=== PATIENT | male | born 1960 | race Caucasian/White ===

== ENCOUNTER 2021-07-08 10:57 | Emergency (ER) | payer OTHER, BC ==
[2021-07-08] MEDS ORDERED: Diphtheria,Pertussis(Acell),Tetanus Vaccine 0.5 ML Syringe IM ONE (11:57)
== END 2021-07-08 14:11 | disposition home or self-care (01) ==
LOC: MW.ED 10:57
DX: S00.93XA Contusion of unspecified part of head, initial encounter (principal); S69.91XA Unspecified injury of right wrist, hand and finger(s), initial encounter; S69.92XA Unspecified injury of left wrist, hand and finger(s), initial encounter; I10 Essential (primary) hypertension; E11.9 Type 2 diabetes mellitus without complications; Z23 Encounter for immunization; W19.XXXA Unspecified fall, initial encounter; Y92.009 Unspecified place in unspecified non-institutional (private) residence as the place of occurrence of the external cause
CPT/HCPCS: 70450; 70450-26; 73130-26-LT; 73130-26-RT; 73130-LT; 73130-RT; 90471; 90715; 99284; 99284-25

== ENCOUNTER 2024-01-29 09:19 | Day surgery (SDC) | payer BC ==
[2024-01-29] MEDS: Lactated Ringers 1,000 ML IV SCH (09:53)
[2024-01-29] MEDS ORDERED: Lidocaine 2% 5 ML SDV ONE (11:10)
[2024-01-29] MEDS ORDERED: Propofol 200 MG/20 ML SDV ONE ×2 (11:10)
== END 2024-01-29 12:50 | disposition home or self-care (01) ==
LOC: MW.SDS 09:19
PROVIDERS: ATTEND Surgery
DX: Z12.11 Encounter for screening for malignant neoplasm of colon (principal); D12.3 Benign neoplasm of transverse colon; D12.2 Benign neoplasm of ascending colon; K63.5 Polyp of colon; K57.30 Diverticulosis of large intestine without perforation or abscess without bleeding; E11.9 Type 2 diabetes mellitus without complications; E03.9 Hypothyroidism, unspecified; K21.9 Gastro-esophageal reflux disease without esophagitis; I10 Essential (primary) hypertension; E66.01 Morbid (severe) obesity due to excess calories; F17.210 Nicotine dependence, cigarettes, uncomplicated; Z79.2 Long term (current) use of antibiotics; Z79.890 Hormone replacement therapy; Z79.899 Other long term (current) drug therapy; Z68.29 Body mass index [BMI] 29.0-29.9, adult
CPT/HCPCS: 45380; 82947; J2704; J7120; J3490

== ENCOUNTER 2024-01-31 15:29 | Emergency (ER) | payer BC ==
[2024-01-31] MEDS: Acetaminophen/HYDROcodone 325-5 MG Tab PO ONE (16:12)
[2024-01-31] MEDS: Ondansetron 4 MG Tab.DIS PO ONE (16:12)
[2024-01-31] MEDS: Lidocaine 1% 5 ML VIAL INJECT ONE ×2 (16:13→17:29)
[2024-01-31] MEDS: ceFAZolin 1 GM Vial IM ONE (18:39)
[2024-01-31] MEDS: Water For Injection, Sterile 10 ML SDV INJECT ONE (18:39)
== END 2024-01-31 19:07 | disposition home or self-care (01) ==
LOC: MW.ED 15:29
DX: S62.632B Displaced fracture of distal phalanx of right middle finger, initial encounter for open fracture (principal); I10 Essential (primary) hypertension; E78.00 Pure hypercholesterolemia, unspecified; J44.9 Chronic obstructive pulmonary disease, unspecified; K21.9 Gastro-esophageal reflux disease without esophagitis; E11.9 Type 2 diabetes mellitus without complications; Z79.51 Long term (current) use of inhaled steroids; Z79.890 Hormone replacement therapy; Z79.891 Long term (current) use of opiate analgesic; Z79.899 Other long term (current) drug therapy; W26.8XXA Contact with other sharp object(s), not elsewhere classified, initial encounter
CPT/HCPCS: 12001; 73140; 96372; 99283; A9270; J0690; J3490